=== PATIENT | male | born 2005 | race Caucasian/White ===

== ENCOUNTER 2023-02-07 21:57 | Emergency (ER) | payer OTHER ==
[~2023-02-07] VITALS: Ht 185.4 cm; Wt 86.4 kg
[2023-02-07 22:04] VITALS: TEMP 98.8
[2023-02-07] MEDS ORDERED: FLEXERIL 1010 MG/TAB PO (23:19)
[2023-02-07] MEDS ORDERED: TORADOL 10MG TA10 MG PO (23:19)
[2023-02-08 00:15] VITALS: BP 136/71; PULSE 80
== END 2023-02-08 00:16 | disposition home or self-care (01) ==
LOC: COL.ER 21:57 → EDBD 21:57 → COL.ER 02-08 00:16
DX: S43.005A Unspecified dislocation of left shoulder joint, initial encounter (principal); X50.1XXA Overexertion from prolonged static or awkward postures, initial encounter; Y92.410 Unspecified street and highway as the place of occurrence of the external cause; Y93.55 Activity, bike riding
CPT/HCPCS: J2270; J2405; J3360